=== PATIENT | male | born 1960 | race Caucasian/White ===

== ENCOUNTER 2017-02-07 08:48 | Outpatient (CLI) | payer OTHER ==
[2017-02-07] MEDS ORDERED: GADOBUTROL 10 MMOL/10 ML SYRINGE IVP ONE (09:51)
--- NOTE | 2017-02-07 13:25 | MRI Report ---
EXAM: MRI BRAIN WITHOUT AND WITH CONTRAST EXAM DATE: 02/07/2017 10:08 AM. CLINICAL HISTORY: 56-year-old man with history of vestibular schwannoma. COMPARISON: None available. TECHNIQUE: Multiplanar, multisequence T1-weighted and fluid-sensitive MR sequences of the brain were performed. Sequences optimized for routine evaluation. Other: High-resolution axial images were acqui red to the internal auditory canals. Without and with IV Contrast: 10 cc Gadavist. FINDINGS: Parenchyma: No evidence of acute infarct on diffusion weighted sequence. The parenchyma demonstrates scattered foci of nonspecific FLAIR hyperintensity in the deep cerebral white matter, most consistent with sequelae of chronic small vessel ischemic disease and a common finding in this age group. No ab normal enhancement. Pituitary: Unremarkable. Ventricles and Extra-axial Spaces: Ventricles are symmetric and normal in size for age. Extra-axial s paces are unremarkable. No abnormal enhancement. Internal auditory canals: Small nodular focus of enhancement is present in the left internal auditory canal that measures approximately 4-5 x 4 mm. Canal remains patent without complete effacement of th e CSF space. No extension into the cerebellopontine angle. The right internal auditory canal is paten t without mass lesion or abnormal enhancement. Cochleas and vestibular apparatuses demonstrate normal fluid signal intensity without abnormal enhancement. Orbits: Unremarkable. Sinuses: Mild scattered mucosal thickening is present in the paranasal sinuses. Mastoid air cells are clear. Major Vascular Flow Voids: Intact. Dural Venous Sinuses and Major Central Veins: Patent on post-contrast images. IMPRESSION: 1. 4-5 mm nodular focus of enhancement in the left internal auditory canal, consistent with clinical history of vestibular schwannoma. Comparison exam is not available to evaluate for interval change [facility] Referring Provider Line: [phone] SITE ID: [id number]
== END 2017-02-07 08:49 | disposition home or self-care (01) ==
LOC: DI 08:48
PROVIDERS: ATTEND Anesthesiology
DX: D33.3 Benign neoplasm of cranial nerves (principal)
CPT/HCPCS: 70543; A9585

== ENCOUNTER 2019-03-22 14:25 | Emergency (ER) | payer OTHER ==
[2019-03-22] MEDS ORDERED: BUFFERED LIDOCAINE 10 ML SYRINGE SUBQ STA (15:05)
[2019-03-22] MEDS ORDERED: TETANUS/DIPHTHERIA/PERTUSSIS 0.5 ML SYRINGE IM ONE (15:37)
--- NOTE | 2019-03-22 15:37 | ED Physician Documentation ---
PD HPI UPPER EXT INJURY - Stated complaint Stated Complaint: LFT FINGER LAC - Chief complaint Chief Complaint: Laceration - History obtained from History obtained from: Patient - History of Present Illness Location: Left, Finger (middle) Type of injury: Laceration Where injury occurred: Work Timing - onset: Today Timing - duration: Hours Timing - details: Abrupt onset, Still present Improved by: Rest, Immobilization Worsened by: Moving, Palpating Associated symptoms: No: Weakness, Numbness, Tingling, Swelling Contributing factors: No: Anticoagulated Similar symptoms before: Diagnosis (laceration) Recently seen: Not recently seen - Additonal information Additional information: 58-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 He has been able to continue work with placement of a tight Band-Aid but he has had continued bleeding with any movement and he is here now for suturing. Review of Systems Constitutional: denies: Fever Respiratory: denies: Cough GI: denies: Vomiting PD PAST MEDICAL HISTORY - Past Medical History Respiratory: None Endocrine/Autoimmune: None GI: None : None Psych: None Musculoskeletal: None Derm: None - Past Surgical History Past Surgical History: No - Present Medications Home Medications: Ambulatory Orders Medication Instructions Recorded Confirmed Home Medications Unobtainable 03/22/19 03/22/19 [HOME MEDICATIONS UNOBTAINABLE] - Allergies Allergies/Adverse Reactions: Allergies Allergy/AdvReac Type Severity Reaction Status Date / Time No Known Drug Allergies Allergy Verified 03/22/19 14:33 - Social History Does the pt smoke?: Yes Smoking Status: Current every day smoker PD ED PE NORMAL - Vitals Vital signs reviewed: Yes (hypertension mild ) - General General: Alert and oriented X 3, No acute distress, Well developed/nourished - HEENT HEENT: Atraumatic, PERRL, EOMI - Respiratory Respiratory: No respiratory distress - Derm Derm: Normal color, Warm and dry, No rash - Extremities Extremities: No deformity, No edema, Other (There is a laceration to the dorsal surface of the left middle finger over the PIP joint. The laceration does not involve deeper structures and distal n/v is intact. 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, No motor deficit, No sensory deficit, Normal speech Eye Opening: Spontaneous Motor: Obeys Commands Verbal: Oriented GCS Score: 15 - Psych Psych: Normal mood, Normal affect Results - Vitals Vitals: Vital Signs - 24 hr 03/22/19 14:31 Temperature 36.6 C Heart Rate 70 Respiratory 18 Rate Blood Pressure 138/81 H O2 Saturation 98 Oxygen O2 Source Room air Procedures - Laceration (location) left middle finger Length in cm: 2.5 Wound type: Curved, Flap, Clean Neurovascular status: Sensory intact, Motor intact, Vascular intact Tendon involvement: Tendon intact Anesthesia: Lidocaine 1%, With bicarb Wound Preparation: Hibiclens, Irrigated copiously NS, Wound explored, To the base Skin layer closure: Nylon, Interrupted, Size #-0 - enter number (4-0), Sutures - enter # (6) Other: Patient tolerated well, No complications, Neurovascular intact, Dressing applied, Tetanus booster given PD MEDICAL DECISION MAKING - ED course Complexity details: considered differential, d/w patient ED course: 58-year-old male with a laceration of the dorsum of the left middle finger sutures placed and is updated on his tetanus. Departure - Departure Disposition: 01 Home, Self Care Clinical Impression: Finger laceration Qualifiers: Encounter type: initial encounter Finger: middle finger Damage to nail status: without damage Foreign body presence: without foreign body Laterality: left Qualified Code(s): S61.213A - Laceration without foreign body of left middle finger without damage to nail, initial encounter Condition: Stable Instructions: ED Laceration Hand Follow-Up: NICKOLAS SHEPHERD ARNP [Primary Care Provider] - Comments: sutures should be removed in 7-10 days
[2019-03-22 15:54] VITALS: BP 138/88
== END 2019-03-22 15:53 | disposition home or self-care (01) ==
LOC: ED 14:25
DX: S61.213A Laceration without foreign body of left middle finger without damage to nail, initial encounter (principal); W26.8XXA Contact with other sharp object(s), not elsewhere classified, initial encounter; Y93.H3 Activity, building and construction; Y99.0 Civilian activity done for income or pay; F17.200 Nicotine dependence, unspecified, uncomplicated
CPT/HCPCS: 12001; 90471